=== PATIENT | male | born 1950 | race Caucasian/White ===

== ENCOUNTER 2019-05-04 13:43 | Outpatient (CLI) | payer BC ==
[2019-05-04] MEDS ORDERED: ATOR10TA9 PO (14:13)
[2019-05-04] MEDS ORDERED: ASPI-496 PO (14:13)
[2019-05-04] MEDS ORDERED: CLOP75TA PO (14:13)
[2019-05-04] MEDS ORDERED: R LIPOIC ACID PO (14:13)
[2019-05-04] MEDS ORDERED: FEXO180T15 PO (14:13)
[2019-05-04] MEDS ORDERED: CHOL10003 PO (14:13)
[2019-05-04] MEDS ORDERED: FLAX10004 PO (14:13)
[2019-05-04] MEDS ORDERED: ALFU10TA PO (14:13)
[2019-05-04] MEDS ORDERED: macuguard PO (14:13)
[2019-05-04] MEDS ORDERED: DOCO100C PO (14:13)
[2019-05-04] MEDS ORDERED: METO25TA91 PO (14:13)
[2019-05-04] MEDS ORDERED: ENAL2.5T PO (14:13)
[2019-05-04 14:49] LABS: ALANINE AMINOTRANSFERASE 44 U/L (12-78); ALBUMIN 3.9 g/dL (3.4-5.0); ANION GAP 7 mmol/L (5-15); CALCIUM 8.8 mg/dL (8.5-10.1); CHLORIDE 107 mmol/L (98-107); CREATININE 1.12 mg/dL (0.7-1.3)
[2019-05-04 14:52] LABS: ALKALINE PHOSPHATASE 68 U/L (45-117); BILIRUBIN,TOTAL 0.9 mg/dL (0.2-1.0)
== END 2019-05-04 23:59 | disposition home or self-care (01) ==
LOC: STAR 13:43
PROVIDERS: ATTEND Surgery
DX: Z01.818 Encounter for other preprocedural examination (principal); K42.9 Umbilical hernia without obstruction or gangrene
CPT/HCPCS: 36415; 80053; 93005

== ENCOUNTER 2019-05-19 07:37 | Day surgery (SDC) | payer BC ==
[~2019-05-19] VITALS: Ht 172.7 cm; Wt 93.6 kg
[~2019-05-19 07:37] MED LIST: ALFU10TA PO; ASPI-496 PO; ATOR10TA9 PO; CHOL10003 PO; CLOP75TA PO; DOCO100C PO; ENAL2.5T PO; FEXO180T15 PO; FLAX10004 PO; METO25TA91 PO; R LIPOIC ACID PO; macuguard PO
[2019-05-19] MEDS ORDERED: LACTATED RINGERS 1,000 ML IV SCH (08:24)
[2019-05-19] MEDS ORDERED: FENTANYL PF 250 MCG/5ML ONE (09:48)
[2019-05-19] MEDS ORDERED: MIDAZOLAM 1 MG/ML, 2ML ONE (09:48)
[2019-05-19] MEDS ORDERED: BUPIVACAINE/PF 0.5% ONE (10:17)
[2019-05-19] MEDS ORDERED: EPINEPHRINE 1 MG/ML, 1ML ONE (10:18)
[2019-05-19] MEDS ORDERED: DIAZEPAM 5 MG/ML, 2ML IV PRN ×2 (11:00)
[2019-05-19] MEDS ORDERED: METOCLOPRAMIDE 5 MG/ML, 2ML IV PRN (11:00)
[2019-05-19] MEDS ORDERED: ALBUTEROL SULFATE 2.5 MG/3 ML NPPB PRN (11:00)
[2019-05-19] MEDS ORDERED: LABETALOL 5MG/ML, 20ML IV PRN (11:00)
[2019-05-19] MEDS ORDERED: PROMETHAZINE 25 MG/ML, 1ML IV PRN (11:00)
[2019-05-19] MEDS ORDERED: hydrALAzine 20 MG/ML, 1ML IV PRN (11:00)
[2019-05-19] MEDS ORDERED: FENTANYL PF 100 MCG/2ML IV PRN (11:00)
[2019-05-19] MEDS ORDERED: MEPERIDINE/PF 25MG/0.5ML IVPush PRN (11:00)
[2019-05-19] MEDS ORDERED: HYDROmorphone 1 MG/ML, 1ML INJ IV PRN (11:00)
[2019-05-19] MEDS ORDERED: KETOROLAC 30 MG/1 ML IV PRN (11:00)
[2019-05-19] MEDS ORDERED: ONDANSETRON 2MG/ML, 2ML IVPush PRN (11:00)
[2019-05-19] MEDS ORDERED: OXYcodone 5 MG/5 ML ORAL.SOL UDC PO PRN (11:00)
[2019-05-19] MEDS ORDERED: OXYcodone 5 MG/5 ML ORAL.SOL UDC ONE (12:31)
[2019-05-19] MEDS ORDERED: ROCURONIUM 10MG/ML,5ML ONE (15:15)
[2019-05-19] MEDS ORDERED: SUCCINYLCHOLINE 20 MG/ML, 10ML ONE (15:15)
[2019-05-19] MEDS ORDERED: DEXAMETHASONE 4 MG/ML, 1ML ONE (15:15)
[2019-05-19] MEDS ORDERED: PROPOFOL 10 MG/ML, 20ML ONE (15:15)
[2019-05-19] MEDS ORDERED: ONDANSETRON 2MG/ML, 2ML ONE (15:15)
[2019-05-19] MEDS ORDERED: CEFAZOLIN 1,000 MG ONE (15:15)
== END 2019-05-19 14:45 | disposition home or self-care (01) ==
LOC: OUT 07:37
PROVIDERS: ATTEND Surgery
DX: K42.9 Umbilical hernia without obstruction or gangrene (principal); I25.10 Atherosclerotic heart disease of native coronary artery without angina pectoris; I25.2 Old myocardial infarction; E78.5 Hyperlipidemia, unspecified; E11.9 Type 2 diabetes mellitus without complications; Z79.82 Long term (current) use of aspirin; Z79.899 Other long term (current) drug therapy; Z95.1 Presence of aortocoronary bypass graft; Z87.891 Personal history of nicotine dependence; Z88.8 Allergy status to other drugs, medicaments and biological substances
CPT/HCPCS: 49652; 82962; C1781; J0171; J0330; J0690; J1100; J2250; J2405; J2704; J3010; J7120; S2900